=== PATIENT | male | born 1980 | race Two or more races ===

== ENCOUNTER 2019-11-14 09:13 | Emergency (ER) | payer MEDICAID ==
[~2019-11-14] VITALS: Ht 180.3 cm; Wt 127.0 kg
[2019-11-14 10:30] LABS: BASOPHILS % 0.5 % (0.0-2.0); EOSINOPHILS % 1.4 % (0.0-5.0); HEMATOCRIT. 44.5 % (42.0-52.0); HEMOGLOBIN. 15.6 g/dL (14.0-18.0); LYMPHOCYTES % 31.8 % (20.0-50.0); MEAN CORPUSCULAR HEMOGLOBIN 30.9 pg (28.0-32.0); MEAN CORPUSCULAR VOLUME 88.2 fL (80.0-94.0); MEAN PLATELET VOLUME 8.3 fl (7.4-10.4); MONOCYTES % 8.1 % (2.0-8.0); NEUTROPHILS % 58.2 % (40.0-76.0); PLATELET 256 x1000/uL (130-400); RED BLOOD CELL COUNT 5.05 mill/uL (4.7-6.1); RED CELL DISTRIBUTION WIDTH 13.1 % (11.6-14.6)
[2019-11-14 10:36] LABS: CHLORIDE 104 mEq/L (98-107)
[2019-11-14 10:41] LABS: PROTHROMBIN TIME 10.2 sec (9.6-11.0)
[2019-11-14 11:15] LABS: CLARITY URINE CLEAR (CLEAR); COLOR URINE YELLOW (YELLOW); KETONES URINE NEGATIVE (NEGATIVE); LEUKOCYTE ESTERASE URINE NEGATIVE (NEGATIVE); NITRITE URINE NEGATIVE (NEGATIVE); OCCULT BLOOD URINE NEGATIVE (NEGATIVE); PROTEIN URINE NEGATIVE (NEGATIVE); SPECIFIC GRAVITY URINE 1.022 (1.005-1.030); UROBILINOGEN URINE 0.2 E.U./dL (0.2-1.0)
[2019-11-14] MEDS ORDERED: KETOROLAC 30MG/ML VIAL IV STA (11:31)
[2019-11-14] MEDS ORDERED: ONDANSETRON HCL 4MG/2ML INJ IV STA (11:31)
[2019-11-14] MEDS ORDERED: FAMOTIDINE 20MG/2ML VIAL IV STA (11:31)
[2019-11-14] MEDS ORDERED: VISCOUS LIDOCAINE 2% 15 ML UDC PO STA (11:54)
[2019-11-14] MEDS ORDERED: DICYCLOMINE 10 MG/5 ML ORAL SYR PO STA (11:54)
[2019-11-14] MEDS ORDERED: MAGNESIUM/ALUMINUM HYDROXIDE/SIMETHICONE 30ML UDC PO STA (11:54)
[2019-11-14] MEDS ORDERED: MECLIZINE 25MG TABLET PO ONE (13:00)
[2019-11-14 13:10] VITALS: BP 120/79
== END 2019-11-14 13:12 | disposition home or self-care (01) ==
LOC: ER 09:13
DX: R10.13 Epigastric pain (principal); R11.2 Nausea with vomiting, unspecified; R42 Dizziness and giddiness; R19.7 Diarrhea, unspecified
CPT/HCPCS: 36415; 80053; 81003; 83690; 85025; 85610; 93005; 96374; 96375; 99284; J1885; J2405; J3490; J8597